=== PATIENT | female | born 1980 | race Caucasian/White ===

== ENCOUNTER 2021-11-03 01:18 | Outpatient (CLI) | payer MEDICAID, SELFPAY ==
--- NOTE | 2021-11-03 09:45 | DI.MRI_ITS ---
Exam(s) MR LUMBAR SPINE WO EXAM: MR LUMBAR SPINE WO CLINICAL HISTORY: LUMBAR STENOSIS, M48.061, LUMBAR DISC HERNIATION W/RADICULOPATHY, M51.16. TECHNIQUE: Multiplanar multisequence MRI of the Lumbar spine was performed. COMPARISON: DX XR LS SPINE 2-3 VIEWS from 05/10/2019 MR MR LS SPINE W/WO CONTRAST from 06/16/2019 CR XR HIP RT MIN 2V AND PELVIS from 09/26/2021 FINDINGS: Bones: The last intervertebral disc space is designated the L5/S1 level for the numbering purpose of this examination. The vertebral body heights are well maintained. Alignment is satisfactory. The ma rrow signal characteristics are unremarkable. Cord: The conus tip ends at the T12 level. It is of normal size and signal intensity. T12-L1: No disc herniations or bulges are present. No central spinal canal or neural foraminal stenos is. L1-2: No disc herniations or bulges are present. No central spinal canal or neural foraminal stenosis . L2-3: No disc herniations or bulges are present. No central spinal canal or neural foraminal stenosis . L3-4: Right-sided laminectomy. Loss of disc height and endplate osteophytes eccentric toward the lef t. Moderate left neural foraminal narrowing. Mild concentric disc bulging. No significant central canal stenosis. L4-5: Laminectomy defects. Loss of disc height eccentric toward the right and prominent endplate ost eophytes, eccentric toward the right. Right-sided facet osteophytes combine with disc osteophytes to cause severe right neural foraminal narrowing. Small right sided facet cyst posteriorly. Mild-to-m oderate disc bulging. Mild central canal stenosis.. L5-S1: No disc herniations or bulges are present. No central spinal canal or neural foraminal stenosi s. Soft tissues: The visualized SI joints and sacrum are well maintained. The paraspinal soft tissues ar e unremarkable. IMPRESSION: Interval worsening of degenerative changes at L3-4 with moderate left neural foraminal narrowing. Im provement in degree of central canal stenosis status post laminectomy. Stable appearance of severe right-sided degenerative disc changes and severe right neural foraminal n arrowing. DATA REPOSITORY:
== END 2021-11-03 01:38 ==
PROVIDERS: Visit Provider Neurological Surgery
DX: M48.061 Spinal stenosis, lumbar region without neurogenic claudication (principal); M51.16 Intervertebral disc disorders with radiculopathy, lumbar region; Z98.890 Other specified postprocedural states
CPT/HCPCS: 72148

== ENCOUNTER 2021-11-03 01:18 | Outpatient (CLI) | payer MEDICAID, SELFPAY ==
--- NOTE | 2021-11-03 10:45 | DI.MRI_ITS ---
Exam(s) MR LOWER JOINT RT WO EXAM: MR LOWER JOINT RT WO CLINICAL HISTORY: INJURY OF RT HIP, S79.911D, S/P FALL ON 09/16/21;EXQUISITELY PAINFUL RT KNEE. TECHNIQUE: Multiplanar multisequence MRI was performed. COMPARISON: DX XR LS SPINE 2-3 VIEWS from 05/10/2019 CR XR HIP RT MIN 2V AND PELVIS from 09/26/2021 FINDINGS: Exam is somewhat limited by patient motion. There is no evidence of fracture. There is no joint eff usion. There is mild edema between the left gluteus minimus and medius muscles on the left. There i s mild edema near the greater trochanters but no tendon abnormality. There is no gross evidence of a labral defect. Marrow signal shows some red marrow reconversion. The uterus, ovaries and bladder a re unremarkable. There is a trace amount of fluid low in the pelvis, physiologic. The SI joints are unremarkable. IMPRESSION: No evidence of fracture. Mild edema adjacent to both greater trochanters no evidence of tendon tear. Edema between the gluteus medius and minimus muscles on the left side. DATA REPOSITORY:
== END 2021-11-03 01:38 ==
PROVIDERS: Visit Provider Physician Assistant Medical
DX: M25.551 Pain in right hip (principal); M25.561 Pain in right knee; S79.811 Other specified injuries of right hip; R60.0 Localized edema; Z91.81 History of falling
CPT/HCPCS: 73721

== ENCOUNTER 2023-05-26 16:41 | Outpatient (CLI) | payer MEDICAID, SELFPAY ==
--- NOTE | 2023-05-26 06:00 | DI.RAD_ITS ---
Exam(s) XR PAIN CLINIC LUMBAR SP 2V EXAM: XR PAIN CLINIC LUMBAR SP 2V CLINICAL HISTORY: Dx: Lumbar Radiculopathy TECHNIQUE: 2D and realtime digital imaging was performed. CONTRAST MATERIAL: Refer to procedure report. COMPARISON: No exams were available for comparison FINDINGS: Fluoroscopy was provided for Dr. Walker during the performance of a lumbar transforaminal steroid inje ction. Please refer to the procedure report for complete details. Ka,r=18.9 mGy IMPRESSION: RADIATION DOSE DELIVERED:
[2023-05-26 16:51] VITALS: BP 134/96; PULSE 83; RESP 20; TEMP 37; O2SAT 98
[2023-05-26 17:35] VITALS: BP 127/92; PULSE 91; RESP 19; O2SAT 97
[2023-05-26] MEDS: Omnipaque 240 MG/ML 50 ML BTL IJ (17:54)
[2023-05-26] MEDS: Dexamethasone Sod. Phos./Pres-Free 10 MG/ML VIAL IJ (17:55)
--- NOTE | 2023-05-26 19:10 | PDOC.PAIN_ITS ---
Date of service: 05/26/23 Time of Service: 17:30 Pain Managment Procedure Note Procedure Note Procedure Note: LUMBAR / SACRAL TRANSFORAMINAL INJECTION at the right L4 Mikel Solitario has been referred to the [facility] for a transforaminal nerve root block and steroid injection. Dx: Lumbar radiculopathy Pain VAS was 8/10 pre-procedure COMMENTS: The patient was evaluated by her surgeon at [facility] and referred for this procedure. She is post-surgical to the lumbar spine and has a right L4 radiculopathy. Patient was interviewed and the medical record reviewed. There were no medical, pharmacologic, radiographic or other structural contraindications to attempting fluoroscopically guided transforaminal nerve root block and epidural steroid injection. Risks and expected side effects as well as potential benefit of the procedure were reviewed and voiced concerns addressed. The printed consent form was signed and witnessed. Standard time-out procedure was performed. Patient was placed in the prone position on the fluoroscopy table and automated blood pressure cuff and pulse oximeter applied. Fluoroscopy was utilized to identify the right L4 neural foramen between L4 and L5 . A skin prasanna was made for the needle insertion site. A Chlorhexadine prep was carried out, and sterile drapes were applied. Local anesthesia was achieved in the skin and subcutaneous tissues. A 22 gauge curved tip spinal needle was then inserted, advanced with fluoroscopic guidance into the neural foramen, confirmed on the lateral view. After negative aspiration, 2 ml of Omnipaque 240 was injected confirming position in A/P and lateral views. This showed a good spread of dye transforaminally into the epidural space. There was no vascular update with contrast injection under continuous fluoroscopy. 15 mg of Dexamethasone was injected, followed by 0.5 ml of 1% Xylocaine flush for the nerve root block, as well. There was no unusual discomfort expressed.The needle was withdrawn. The patient tolerated the procedure well. A Band-Aid was applied. Vital signs were stable throughout the procedure and were as recorded in nursing records. If given, dosages of intravenous drugs for anxiolysis and analgesia were documented in nursing records. Follow up plans and appointments were discussed. Post procedure instruction was given as documented in nursing records and patient was discharged in the care of an identified maintenance truck driver. COMMENTS: Post-procedure pain VAS was 5/10. She was able to walk much easier. Hayden Walker DO, MPH [facility]-Pain Management [facility] CC: Alhaji Flor
== END 2023-05-26 16:42 | disposition home or self-care (01) ==
LOC: PC 16:41
PROVIDERS: Visit Provider Preventive Medicine Occupational Medicine
DX: M54.16 Radiculopathy, lumbar region (principal)
CPT/HCPCS: 00123; 64483; 72100; Q9967

== ENCOUNTER 2025-01-01 11:18 | Outpatient (CLI) | payer MEDICAID, SELFPAY ==
--- NOTE | 2025-01-01 11:00 | DI.RAD_ITS ---
Exam(s) XR ANKLE LT COMPLETE EXAM: XR ANKLE LT COMPLETE CLINICAL HISTORY: eval L ankle instability/pain. TECHNIQUE: 2D digital imaging was performed. COMPARISON: No exams were available for comparison FINDINGS: 3 views No evidence of fracture or widening the ankle mortise. Talar dome unremarkable. No significant soft tissue swelling. Bone density normal. No osseous lesions. Degenerative changes the calcaneocuboid joint. IMPRESSION: There is some degenerative changes in the calcaneocuboid joint. DATA REPOSITORY: RADIATION DOSE DELIVERED:
== END 2025-01-01 11:19 | disposition home or self-care (01) ==
LOC: DIORS 11:19
PROVIDERS: PCP Physician Assistant Medical; Referring Provider Physician Assistant Medical; Visit Provider Student in an Organized Health Care Education/Training Program
DX: M25.372 Other instability, left ankle (principal)
CPT/HCPCS: 73610

== ENCOUNTER 2025-01-23 11:56 | Day surgery (SDC) | payer MEDICAID, SELFPAY ==
[2025-01-23] VITALS (7 sets, daily range): BP systolic 122–133; BP diastolic 72–98; PULSE 73–81; RESP 14–16; TEMP 36.1–36.4; O2SAT 95–98; BMI 31.4
[2025-01-23] MEDS: Lactated Ringers 1,000 ML 80 ML IV (12:00)
[2025-01-23] MEDS: Acetaminophen 500 MG TAB 1000 MG PO (12:51)
[2025-01-23] MEDS: Celecoxib 200 MG CAP 400 MG PO (12:52)
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
[2025-01-23] MEDS: ceFAZolin 2 GM/50 ML BAG IVPB (14:24)
[2025-01-23] MEDS: TRANEXAMIC ACID/SOD. CHL. 1,000 MG/100 ML BAG 600 MG IVPB (14:30)
--- NOTE | 2025-01-23 14:49 | W.PM.DSUDISC ---
Date of service: 01/23/25 Discharge Plan Disposition Patient Disposition: Home Condition: Good Discharge Details Reason For Visit: Right prepatellar bursitis Attending Provider: Mihir Berger Primary Care Provider: Tasha Mireles Home Meds and New Rx's Prescriptions: New hydrocodone-acetaminophen 5-325 mg tablet 1 tab PO Q6H PRN (Reason: severe pain) Qty: 10 0RF Rx Instructions: Take one tablet up to every 6 hours as needed for severe postoperative pain acetaminophen 500 mg tablet 500 mg PO Q6H PRN (Reason: pain) Qty: 60 2RF ibuprofen 600 mg tablet 600 mg PO TID PRN (Reason: pain) Qty: 60 0RF Continued promethazine 12.5 MG tablet 12.5 mg PO QID PRN albuterol sulfate [ProAir HFA] 8.5 GM HFA aerosol inhaler 2 puff Inhalation Q4H PRN fluticasone propionate 16 GM spray,suspension 50 mcg NS BID cetirizine 10 MG tablet,chewable 10 mg PO DAILY naloxone [Narcan] 4 MG spray,non-aerosol 4 mg NS PRN Qty: 2 dextroamphetamine-amphetamine [Adderall] 20 mg tablet 20 mg PO TID hydroxychloroquine [Plaquenil] 200 mg tablet 200 mg PO DAILY lorazepam [Ativan] 1 mg tablet 1 mg PO HS PRN ketotifen fumarate [Allergy Eye (ketotifen)] 0.025 % (0.035 %) drops 1 drp ophthalmic (eye) Q12H duloxetine 60 mg capsule,delayed release(DR/EC) 60 mg PO DAILY pregabalin [Lyrica] 300 mg capsule 300 mg PO BID cholecalciferol (vitamin D3) [Vitamin D3] 50 mcg (2,000 unit) tablet 50 mcg PO DAILY Vitamin B-12 50 mcg tablet 50 mcg PO DAILY prednisone 5 mg tablet 5 mg PO DAILY prednisone 1 mg tablet 1 mg PO DAILY Discontinued ibuprofen 200 mg tablet 200 mg PO QID Discharge Instructions Additional Instructions: Knee Bursa Excision Discharge Instructions Activity: You may weight bear as tolerated. You may use the crutches to help ambulate if desired. You should keep the leg elevated as much as possible. You may wiggle your toes and move your hip and knee. No kneeling on your right knee. Dressings: You should keep the Osbaldo bandage on for 3 days. After 3 days, you may remove it and keep the large band-aide in place for at least 1 week or until your postoperative appointment. You may get the bandage wet after three days but avoid soaking. Medications: - You should take Tylenol and Ibuprofen around the clock for baseline pain. These are available [id number] but have also been called into your pharmacy for you. - You have been prescribed a stronger narcotic, Hydrocodone, for breakthrough pain. Follow-up: 2 weeks Referrals: Mihir Berger MD [ [facility] STAFF PHYSICIAN, Orthopaedic Surgical] Equipment/Supplies: Partial Weight Bearing Crutches Activity:: Elevate Remove Dressings/Wound Care:: 72 hours Shower/Bathe:: 72 hours Diet:: As Tolerated Discharge Orders Discharge Orders: Discharge Order (Routine); Ordered 01/23/25 Ordered By: Rose Mary Mariee
--- NOTE | 2025-01-23 15:12 | W.PM.OP ---
Operative Note Operative Note PRE-OP DIAGNOSIS: Right Prepatella Bursitis POST-OP DIAGNOSIS: same PROCEDURE: Right Prepatellar Bursectomy SURGEON: Mihir Berger ANESTHESIA TYPE: General LMA/ETT Refer to Anesthesia Record ESTIMATED BLOOD LOSS: 5 PATHOLOGY: none sent COMPLICATIONS: None Patient was transported to: PACU Patient's condition: stable Indications: I have seen Mikel in clinic for symptoms of recalcitrant prepatellar bursitis of the right knee. She has exhausted nonoperative methods and was having significant limitations in daily function and desired better function and less pain. I discussed the technical details. I explained the risks of the procedure to include, but not limited to, bleeding, infection, pain, stiffness, recurrence, need for repeat procedure, blood clot. Despite these risks, Mikel elected to proceed. Findings: There is a dense bursitis in the prepatellar space without any signs of infection. Procedure Description: Mikel was greeted in the preoperative holding area where the correct side was identified and marked. The consent was reviewed with the patient and signed. The history and physical was updated. All questions were answered. Mikel was taken back to the operating room. A general anesthetic was then administered. The patient was placed into the supine position on the operating room table. Posts were placed for positioning during the procedure. All bony prominences were well padded. Prophylactic antibiotics in the form of Cefazolin were administered. 1g of Tranxemic Acid was given intravenously within 30 minutes of incision. The right leg was then prepped with Chloraprep and draped in a standard fashion with impervious stockinette and extremity drape. A second prep with Chloraprep was performed prior to placing Ioband. A timeout to confirm correct identity, side and site, procedure, allergies, anesthesia, and medical concerns was performed. With the knee in some flexion, a midline incision was made overlying the knee. Full thickness skin flaps were raised once the extensor mechanism was encountered. These were raised medially and laterally. Any bleeding was controlled with electrocautery. The bursal tissue was these identified. It was elevated off of the overlying dermis anteriorly and worked around the medial lateral confines of the knee. The bursal space had notable areas of thickness with thickened tissue and some synovial deposits with some fluid. There also was extension of this bursa all the way to the distal aspect of tibial tubercle. The bursal tissue was resected from the overlying dermis and then from the underlying extensor mechanism. This was done with electrocautery as well as a rongeur. I continued to remove any bursal tissue from the prepatellar space. Once this was completed the knee was irrigated. It was inspected once again for any signs of residual bursal tissue which none were found. I then irrigated the knee with Betadine solution for 3 minutes. This was then washed out with saline. Then, deep tissues were then reapproximated with 0 Vicryl and 2-0 Vicryl. The skin was closed with a running 3-0 Monocryl in a subcuticular fashion. This was reinforced with skin glue. A Mepilex silver dressing was applied along with an EDDIE wrap. Mikel was transferred to the hospital bed without difficulty an suffering no apparent complication. She has a good prognosis. Date of Procedure: 01/23/25
--- NOTE | 2025-01-23 18:27 | W.ANESPOSTOP ---
Postoperative Evaluation Date, Time and Location Date Performed: 01/23/25 Time Performed: 17:30 Patient Location: Day Surgery Unit Vital Signs Most Recent Imported Vital Signs: Most Recent Vital Signs Temp Pulse Resp BP Pulse Ox 36.4 C L 77 16 124/75 96 01/23/25 17:37 01/23/25 17:37 01/23/25 17:37 01/23/25 17:37 01/23/25 17:37 Pain Score Most Recent Pain Score: Most Recent Pain Score Pain Level 1 01/23/25 17:37 Assessment Mental Status: Awake (Alert & Oriented to Patient Baseline) Airway and Respiratory Function: Patent airway with normal (patient baseline) respiratory exam Cardiovascular Function: Hemodynamically Stable Hydration Status: Adequately Hydrated Nausea & Vomiting: No Nausea or Vomiting Pain: Pain is tolerable per patient Peripheral Nerve Block: Patient did not receive a nerve block
== END 2025-01-23 17:55 | disposition home or self-care (01) ==
PROVIDERS: PCP Physician Assistant Medical; Visit Provider Student in an Organized Health Care Education/Training Program
PROC: (CPT 27340; principal; 2025-01-23 15:00)
DX: M70.41 Prepatellar bursitis, right knee (principal); J45.909 Unspecified asthma, uncomplicated; E55.9 Vitamin D deficiency, unspecified; I73.00 Raynaud's syndrome without gangrene; M79.7 Fibromyalgia; Z79.899 Other long term (current) drug therapy
CPT/HCPCS: 27340; 81025; J0690; J1100; J2003; J2250; J2405; J2704; J3475

== ENCOUNTER 2025-02-23 21:29 | Emergency (ER) | payer MEDICAID, SELFPAY ==
[2025-02-23 21:35] VITALS: BP 162/108; PULSE 108; RESP 20; TEMP 36; O2SAT 98
--- NOTE | 2025-02-23 21:45 | DI.RAD_ITS ---
Exam(s) XR KNEE RT 2V AP,LAT EXAM: XR KNEE RT 2V AP,LAT CLINICAL HISTORY: surgical wound dehiscence pre patellar, post fall. TECHNIQUE: 2D digital imaging was performed. COMPARISON: No exams were available for comparison FINDINGS: Two views. No evidence of acute fracture nor joint effusion in the knee. No joint space narrowing nor osteophytes. However, there appears to be avulsion soft tissue injury on the anterior aspect of the knee with abnormal density within the subcutaneous fat anterior to the patella and also some regularity in the subcutaneous tissues anterior to the patellar ligament. There also appears to be some gas in the soft tissues quadriceps tendon. IMPRESSION: No osseous findings but significant soft tissue findings as described above, including some air-gas in the quadriceps tendon. There are no radiopaque foreign bodies anterior to the knee nor within the soft tissues surrounding the knee, given the history here. Preliminary virtual Radiology report was reviewed Final report called by myself to ER physician 02/24/2025 at 4 p.m. DATA REPOSITORY: RADIATION DOSE DELIVERED:
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
--- NOTE | 2025-02-23 23:11 | DI.VRAD_ITS ---
PROCEDURE INFORMATION: Exam: XR Right Knee Exam date and time: 02/23/2025 10:36 PM Age: 45 years old Clinical indication: Injury or trauma; Fall; Other: Surgical wound dehiscence pre patellar; Prior surgery; Surgery date: <1 month; Surgery type: Bursitis removal of the knee TECHNIQUE: Imaging protocol: Radiologic exam of the right knee. Views: 1 or 2 views. COMPARISON: CR XR KNEE COMPLETE MIN 4V RT 01/13/2024 10:34 AM FINDINGS: Bones/joints: No discrete or displaced fracture. No joint dislocation. No significant joint effusion. Soft tissues: No focal abnormality. IMPRESSION: No discrete or displaced fracture. Dictated and Authenticated by: Henry Burgos MD. Orderin Nona Zimmerman MD
[2025-02-23 23:17] LABS: Abs Immature Grans 0.03 10^3/uL (0.0-0.06); HCT 44.6 % (36.0-46.0); HGB 15.1 g/dL (11.2-15.7); Immature Grans % 0.3 %; MCH 32.9 pg (27.0-33.0); MCHC 33.9 % (32.0-36.0); MCV 97 fL (80-95); MPV 10.6 fL (8.0-11.0); Platelet Count 278 10^3/uL (130-400); RBC 4.59 10^6/uL (3.93-5.22); RDW 13.9 % (11.7-14.6); RDW-SD 50.1 fL; WBC 9.33 10^3/uL (4.4-10.8)
[2025-02-23] MEDS: ACETAMINOPHEN 1,000 MG/100 ML BAG 400 MG IVPB (23:30)
[2025-02-23] MEDS: Ketorolac 15 MG/ML VIAL IVP (23:30)
[2025-02-23 23:34] LABS: ALT 32 U/L (14-59); AST 20 U/L (15-37); Albumin 4.0 g/dL (3.4-5.0); Alkaline Phosphatase 93 U/L (46-116); Anion Gap 8.4 mmol/L (3-11); BUN 8 mg/dL (7-18); Bilirubin, Total 0.3 mg/dL (0.2-1.0); CO2 28.6 mmol/L (21.0-32.0); Calcium 8.7 mg/dL (8.5-10.1); Chloride 103 mmol/L (98-107); Estimated GFR 113.44 (mL/min/1.73m2); Glucose 91 mg/dL (74-106); Potassium 3.7 mmol/L (3.5-5.1); Sodium 140 mmol/L (136-145); Total Protein 7.7 g/dL (6.4-8.2)
[2025-02-23] MEDS: DOXYCYCLINE 100 MG in Normal Saline 100 ML IVPB (23:50)
[2025-02-24 00:09] VITALS: RESP 20; O2SAT 99
--- NOTE | 2025-02-24 13:17 | NUR.NOTE ---
Nursing Note: This RN accessed patient's chart to read visit summary from yesterday (02/23/25) regarding dehiscence of wound. Patient states that she was told by ER MD that she will meet with Dr. Berger tomorrow (Wednesday02/25/25) to have wound washed out and closed. Patient unsure of when and where to go. This RN unable to confirm with patient if she should check in to ER to see Dr. Berger here or if Dr. Berger has scheduled for washout to be performed in OR. Discharge instructions and visit summary unclear. Patient also states that she has noticed significant bleeding through gauze and jamie wrap but states that she has not changed the bandage since it was applied yesterday. This RN told patient that if she feels she is having significant bleeding that she should return to the ED for reevaluation. This RN will also notify Dr. Cross who saw patient yesterday to clarify what the plan if for the patient for tomorrow. Patient states that she will change her dressing and evaluate if she will come in today. Austen Carlos RN
== END 2025-02-24 00:10 | disposition home or self-care (01) ==
PROVIDERS: Emergency Provider Emergency Medicine; PCP Student in an Organized Health Care Education/Training Program
DX: T81.31XA Disruption of external operation (surgical) wound, not elsewhere classified, initial encounter (principal); W19.XXXA Unspecified fall, initial encounter
CPT/HCPCS: 12004; 80053; 96365; 96367; 96375; 99284; 73560; 85025; J0131; J1885

== ENCOUNTER 2025-02-25 06:09 | Observation (INO) | payer MEDICAID, SELFPAY ==
[2025-02-25] VITALS (34 sets, daily range): BP systolic 111–145; BP diastolic 67–101; PULSE 69–85; RESP 0–29; TEMP 36.1–36.9; O2SAT 92–100; BMI 30.9
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
[2025-02-25] MEDS: Lactated Ringers 1,000 ML 75 ML IV (08:12)
[2025-02-25] MEDS: Normal Saline Flush 10 ML SYR IVP (08:13)
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
[2025-02-25] MEDS: ceFAZolin 2 GM/50 ML BAG IVPB (08:58)
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
--- NOTE | 2025-02-25 09:37 | W.PM.OP ---
Operative Note Operative Note PRE-OP DIAGNOSIS: Right Knee Surgical Wound Dehisence PROCEDURE: Irrigation and debridement with secondary closure of right knee wound Carito wound vacuum dressing application SURGEON: Mihir Berger ANESTHESIA TYPE: General LMA/ETT Refer to Anesthesia Record ESTIMATED BLOOD LOSS: 5 COMPLICATIONS: None Findings: There was dehiscence of the surgical knee wound involving about 80% of the length. There was minimal gross contamination. Previous sutures were removed. Aggressive debridement was performed. Closure was completed. A wound vacuum dressing, carito, was applied. Procedure Description: Mikel was greeted in the preoperative holding area. She is patient seen on the medical surgical floor where her consent was obtained and history physical was updated. She was taken back to the operating room placed in supine position on the operating table. Post replacement positioning of the right leg. A general anesthetic was administered. Prophylactic antibiotics in the form of cefazolin were given. A timeout performed with a surgeon. Right leg was then prepped ChloraPrep and draped in standard fashion. The previous sutures applied Emergency Department removed. There is gross dehiscence of the distal 80% of the wound. The 2 mm of the skin adjacent to the dehisced skin edges was then removed sharply. Sutures were removed. A debridement is performed with a rongeur as well as a curette to remove any of the early scar tissue and thus any debris in this area. There was no gross contamination apparent. This was completed the wound was then irrigated with 1 L of normal saline with cystoscopy tubing. The knee was once again inspected. There was a interesting divot to the proximal one third of the patella adjacent to quadriceps insertion but there is no defect in the quadriceps or defect of the patella. There is no apparent contamination at this point. Further irrigation was performed and inspected once more and once again showing no signs of necrotic appearing material or debris. The knee was then irrigated with Betadine solution. Lots of the need 40 minutes. I then injected the knee and surrounding tissues with a mixture of ropivacaine, epinephrine, clonidine and ketorolac, diluted to 50 cc. Betadine was irrigated with saline. The knee was then closed in 90 degrees of flexion utilizing 2-0 Monocryl buried fashion. The skin was closed with aldo. A carito vacuum-assisted wound dressing was then applied to assist with wound healing and fluid management. An Osbaldo wrap was applied. At the end the case, all counts were correct. Date of Procedure: 02/25/25
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
[2025-02-25] MEDS: fentaNYL 100 MCG/2 ML VIAL IVP ×2 (09:52→10:00)
[2025-02-25] MEDS: Midazolam 2 MG/2 ML VIAL IVP ×2 (10:10→10:19)
[2025-02-25] MEDS: oxyCODONE 5 MG TAB PO (11:45)
--- NOTE | 2025-02-25 11:47 | W.ANESPOSTOP ---
Postoperative Evaluation Date, Time and Location Date Performed: 02/25/25 Time Performed: 10:31 Patient Location: PACU Vital Signs Most Recent Imported Vital Signs: Most Recent Vital Signs Temp Pulse Resp BP Pulse Ox 36.8 C 73 14 119/80 92 02/25/25 10:47 02/25/25 10:47 02/25/25 10:47 02/25/25 10:47 02/25/25 10:47 Pain Score Most Recent Pain Score: Most Recent Pain Score Pain Level [Right Anterior 2 02/25/25 07:32 Knee] Pain Level 6 02/25/25 11:45 Assessment Mental Status: Awake (Alert & Oriented to Patient Baseline) Airway and Respiratory Function: Patent airway with normal (patient baseline) respiratory exam Cardiovascular Function: Hemodynamically Stable Hydration Status: Adequately Hydrated Nausea & Vomiting: No Nausea or Vomiting Pain: Pain is Moderate or Severe Postoperative Pain Management: Ongoing pain, patient will be managed as an inpatient Peripheral Nerve Block: Patient did not receive a nerve block
--- NOTE | 2025-02-25 13:27 | PDOC.CMDIS ---
Date of service: 02/25/25 Time of Service: 13:27 LACE Index Scoring Tool Questions: Length of Stay (in days): 1 Was the patient admitted via the E.D.?: No Comorbidities: Chronic Pulmonary Disease and Connective Tissue Disease E.D. Visits: 1 Answers: Total Score: 7 Risk of Readmission: Low Risk Care Management Discharge Plan Reason for Hospitalization: prepatellar bursitis Discharge Plan: Mikel will be discharged home with no new services. She will follow up with her surgeon and discharge plan of care and transport with her friend. Patient/Family Education Needs: Review of discharge instructions, limitations, follow up plan and discuss Ask Me Three
--- NOTE | 2025-02-25 15:33 | NUR.NOTE ---
Nursing Note: Patient called [phone] after discharging at 1312 stating my dressing is soaked with blood. I advised her to return to the [facility] dept so I can assess the dressing and wound. Dr. Berger was notified at 1329 via [employer] that his patient was reporting bleeding and was returning to the hospital. Dr. Berger called in and reported to take down BOAZ dressing, assess bleed if controlled apply ABD, wrap with kerlix and jamie wrap. After removing jamie wrap, and BOAZ dressing, I assessed the wound. The aldo are intact and minimal drainage from the distal staple. I applied gauze, applied light pressure for 10 minutes, reassessed, scant serous fluid draining. I applied ABD, kerlix, and jamie wrap. At 1415, I reassessed the dressing, kerlix and jamie wrap was c/d/i. I notified Dr. Berger that she was all set. I advised the patient if she notices her incision bleeding through the jamie wrap to apply pressure, reinforce dressing. If that doesn't stop the bleeding to call 911 especially if she is feeling dizzy, weak, or lightheaded. Dr. Berger notified patient was all set and leaving to go home.
== END 2025-02-25 13:12 | disposition home or self-care (01) ==
PROVIDERS: Admitting Provider Student in an Organized Health Care Education/Training Program; PCP Student in an Organized Health Care Education/Training Program; Visit Provider Student in an Organized Health Care Education/Training Program
PROC: (CPT 13160; principal; 2025-02-25 07:45)
DX: T81.30XA Disruption of wound, unspecified, initial encounter (principal); W01.0XXA Fall on same level from slipping, tripping and stumbling without subsequent striking against object, initial encounter; Z79.899 Other long term (current) drug therapy; M50.20 Other cervical disc displacement, unspecified cervical region; M51.16 Intervertebral disc disorders with radiculopathy, lumbar region; M48.061 Spinal stenosis, lumbar region without neurogenic claudication; R32 Unspecified urinary incontinence; I73.00 Raynaud's syndrome without gangrene; M79.7 Fibromyalgia; J45.909 Unspecified asthma, uncomplicated; R25.1 Tremor, unspecified; E55.9 Vitamin D deficiency, unspecified; F17.210 Nicotine dependence, cigarettes, uncomplicated; F32.A Depression, unspecified; F10.10 Alcohol abuse, uncomplicated; F41.9 Anxiety disorder, unspecified; D75.89 Other specified diseases of blood and blood-forming organs; G43.909 Migraine, unspecified, not intractable, without status migrainosus; F12.90 Cannabis use, unspecified, uncomplicated
CPT/HCPCS: 13160; G0378; J0690; J1100; J1885; J2003; J2250; J2405; J2704; J3010